=== PATIENT | male | born 1940 | race African-American/Black ===

== ENCOUNTER 2019-01-09 11:51 | Inpatient (IN) ==
[2019-01-09 13:13] LABS: URINE SOURCE CLEAN CATCH
[2019-01-09 13:15] LABS: BASO# 0.02 X1000 (0.0-0.2); BASO% 0.2 % (0.0-0.8); EOS# 0.02 X1000 (0.0-0.7); EOS% 0.2 % (0.0-10.0); HEMATOCRIT 46.7 % (42.0-52.0); HEMOGLOBIN 15.9 g/dL (14.0-18.0); LYMPH# 1.91 X1000 (1.2-3.4); LYMPH% 16.9 % (20.5-51.1); MCH 30.5 PG (27-31); MCV 89.6 FL (81-99); MONO% 7.1 % (1.7-9.3); NEUT# 8.57 X1000 (1.4-6.5); NEUT% 75.6 % (42.2-75.2); PLT 201 X1000 (130-400); RBC 5.21 XMIL (4.7-6.1); RDW 13.2 % (11.5-14.5); WBC 11.32 X1000 (4.8-10.8)
[2019-01-09 13:15] LABS: BILIRUBIN URINE NEGATIVE (NEGATIVE); BLOOD URINE TRACE (NEGATIVE); COLOR YELLOW; GLUCOSE URINE NEGATIVE (NEGATIVE); KETONE URINE NEGATIVE (NEGATIVE); LEUKOCYTES URINE TRACE (NEGATIVE); NITRITE URINE NEGATIVE (NEGATIVE); PROTEIN URINE 50 mg/dL (NEGATIVE); SP GRAVITY URINE 1.027; TURBIDITY URINE CLEAR (CLEAR); UR EPITHELIAL CELLS <10 /HPF (<10); URINE BACTERIA NEGATIVE /HPF; URINE RBC <10 /HPF (<10); URINE WBC <10 /HPF (<10); UROBILINOGEN URINE NORMAL (NORMAL)
[2019-01-09 13:30] LABS: ALBUMIN 4.2 g/dL (3.5-5.0); CALCIUM 10.2 mg/dL (8.8-10.2); CREATININE 1.5 mg/dL (0.7-1.2); TOTAL BILIRUBIN 0.63 mg/dL (0.20-1.00); TOTAL PROTEIN 8.3 g/dL (6.3-8.3)
--- NOTE | 2019-01-09 15:53 | Diag Imaging Result Doc PS360 ---
US GB < RUQ (LIMITED) - 01/09/2019 INDICATION: epigastric pain TECHNIQUE: COMPARISON: None FINDINGS: The exam is challenging due to excessive bowel gas. The liver and gallbladder are normal. Common bile duct measures 8 mm. Pancreas and right kidney are obscured. Aorta, IVC, and main portal vein are obscured. IMPRESSION: Negative exam. Electronically signed by Erasmo Keenan 01/09/2019 3:51 PM
--- NOTE | 2019-01-09 17:56 | PROVIDER DOCUMENTATION ---
HPI-Abdominal Pain/GI Problem - General Chief Complaint: N/V/D Stated Complaint: VOMITING Time Seen by Provider: 01/09/19 12:28 Source: patient Allergies/Adverse Reactions: Patient Allergies Allergy/AdvReac Type Severity Reaction Status Date / Time No Known Allergies Allergy Verified 09/11/14 07:21 Home Medications: Home Medication List Medication Instructions Recorded Confirmed Last Taken Type Ondansetron HCl [Zofran] 4 mg PO Q8H PRN #15 tablet 09/11/14 Unknown Rx - History of Present Illness-ABD Nature of Presenting Problems: 78 YO M pmh for HTN presents with c/o abdominal bloating and hiccups x 3 days. Associated n/v/diarrhea without blood. Denies fever, chills, new foods or sick contacts. Hx of remote appendectomy. Poor historian. Unsure of medication he takes for HTN. PCP is Dr. Moran. Abdominal Pain Onset Location: reports: generalized abdomen Pain Radiation: reports: no radiation Quality of Pain: reports: fullness, pressure Severity in ED: reports: mild Onset/Duration: reports: 3 days ago Timing: reports: still present Activities at Onset: reports: none Exposure to sick contacts?: No Modifying Factors: improves with: nothing Associated Symptoms: reports: diarrhea, nausea, vomiting. denies: fever/chills, shortness of breath, trouble walking Last BM: this afternoon Dark Stools Present?: reports: none noticed Similar Symptoms Previously?: No Review of Systems - Adult - REVIEW OF SYSTEMS - ADULT Constitutional: denies: chills, fever Eyes: reports: no symptoms reported Ears, Nose, Mouth & Throat: reports: no symptoms reported Cardiovascular: denies: chest pain, edema Respiratory: reports: no symptoms reported Past History - Adult - PAST MEDICAL HISTORY-ADULT Review of Records: reports: Old Records Reviewed, Social history reviewed & non- contributory. Major Childhood Illnesses: reports: denies history Cardiovascular: reports: HTN Respiratory: reports: denies history Gastrointestinal: reports: denies history Genitourinary: reports: denies history Musculoskeletal: reports: denies history Neurological: reports: denies history Psychiatric: reports: denies history Endocrine/Immune: reports: denies history Other Conditions: reports: denies history - PRIOR SURGERIES/PROCEDURES Surgical/Procedure History: reports: none - FAMILY HISTORY Family History: reviewed, not pertinent Physical Exam-General - CONSTITUTIONAL General Appearance: alert, no apparent distress - EYES Eyes: pink conjunctivae - HEAD, EARS, NOSE, MOUTH & THROAT HENMT: normocephalic/atraumatic, moist mucous membranes - NECK Neck: full range of motion, supple - RESPIRATORY Respiratory: lungs clear, normal breath sounds, no pleuratic chest pain - CARDIOVASCULAR Cardiovascular: regular rate, rhythm, no edema - GASTROINTESTINAL (ABDOMEN) Abdominal Exam: distended. negative: tenderness, mass, Moreno's sign, Rovsing's sign - MUSCULOSKELETAL Back Exam: normal inspection, no CVA tenderness Extremity: normal range of motion, normal gait - SKIN Integumentary: normal color, normal turgor, warm/dry - NEUROLOGIC Neurologic: grossly normal - PSYCHIATRIC Psych/Mental Status: normal mood/affect Progress - PLAN OF CARE/RESULTS Progress/Plan/Lab Results: Vital Signs - 8 hr 01/09/19 12:00 01/09/19 16:28 01/09/19 16:29 Temperature 98.5 F Pulse Rate 76 Respiratory Rate 19 Blood Pressure 194/88 214/111 O2 Sat by Pulse Oximetry 98 94 L 94 L 01/09/19 16:32 01/09/19 17:00 01/09/19 17:02 Temperature Pulse Rate Respiratory Rate Blood Pressure 195/102 178/96 O2 Sat by Pulse Oximetry 94 L 95 96 Laboratory Results - last 24 hr 01/09/19 01/09/19 01/09/19 12:50 13:00 13:00 WBC 11.32 H RBC 5.21 Hgb 15.9 Hct 46.7 MCV 89.6 MCH 30.5 MCHC 34.0 RDW Std Deviation 13.2 Plt Count 201 MPV 10.0 Neut % (Auto) 75.6 H Lymph % (Auto) 16.9 L [place] % (Auto) 7.1 Eos % (Auto) 0.2 Baso % (Auto) 0.2 Neut # (Auto) 8.57 H Lymph # (Auto) 1.91 [place] # (Auto) 0.80 H Eos # (Auto) 0.02 Baso # (Auto) 0.02 Sodium 135 L Potassium 4.0 Chloride 92 L Carbon Dioxide 31 Anion Gap 12 BUN 12 Creatinine 1.5 H Estimated GFR/1.73 m2 54 BUN/Creatinine Ratio 8 Glucose 144 H Calculated Osmolality 272 Calcium 10.2 Total Bilirubin 0.63 AST 19 ALT 14 Alkaline Phosphatase 83 Total Protein 8.3 Albumin 4.2 Globulin 4.1 Albumin/Globulin Ratio 1.0 Amylase 105 Lipase 20 Urine Source CLEAN CATCH Urine Color YELLOW Urine Turbidity CLEAR Urine pH 6.0 Ur Specific [place] 1.027 Urine Protein 50 A Ur Glucose (Stick) NEGATIVE Ur Ketones (Stick) NEGATIVE Urine Blood TRACE A Urine Nitrite NEGATIVE Urine Bilirubin NEGATIVE Urobilinogen Dipstick NORMAL Urine Leukocytes TRACE A Urine WBC (Auto) <10 Urine RBC (Auto) <10 U Epithel Cells (Auto) <10 Urine Bacteria (Auto) NEGATIVE Orders Category Date Time Status CT ABDOMEN/PELVIS W/O CONTRAST [CT] Stat Exams 01/09/19 17:52 Ordered US GB < RUQ (LIMITED) [US] Stat Exams 01/09/19 14:44 Completed AMYLASE [CHEM] Stat Lab 01/09/19 13:00 Completed CBC WITH DIFF [HEME] Stat Lab 01/09/19 13:00 Completed COMPREHENSIVE METABOLIC PANEL [CHEM] Stat Lab 01/09/19 13:00 Completed LIPASE [CHEM] Stat Lab 01/09/19 13:00 Completed URINALYSIS W/POSS RFLX CULT [URINALYSIS] Stat Lab 01/09/19 12:50 Completed URINE CULTURE [RM] Routine Lab 01/09/19 13:48 Received Result Diagrams: 01/09/19 13:00 01/09/19 13:00 - REASSESSMENT Reassessment #1 Time Reassessed: 20:40 Status: unchanged (pt currently denying any pain) - ULTRASOUND (By Radiology) 1 US Study: Abdomen, Gallbladder Impression: See EMR Report (INDICATION: epigastric pain TECHNIQUE: COMPARISON: None FINDINGS: The exam is challenging due to excessive bowel gas. The liver and gallbladder are normal. Common bile duct measures 8 mm. Pancreas and right kidney are obscured. Aorta, IVC, and main portal vein are obscured. IMPRESSION: Negative exam. Electronically signed by Erasmo Keenan 01/09/2019 3 :51 PM) - CONSULTS/PCP/HOSPITALIST Notification #1 *Consult/PCP/Hospitalist*: Dr. Ortega Time Discussed: 19:31 Consult Disposition: Will see in ED #2 Consult: Dr. Cortes Poole Discussed: 20:36 Consult Disposition: Will see in ED Departure - Departure Date of Disposition Decision: 01/09/19 Time of Disposition Decision: 19:19 DIAGNOSIS: Small bowel obstruction, Hypertension Disposition: ADMITTED INPATIENT 09 Certified Medical Emergency: Emergent Condition: Stable Referrals and Follow-Ups: Lorene Moran MD [Primary Care Provider] - - Critical Care Note This patient required my direct & personal management of CC.: No Attestation - Physician/ FRIDA Attestation The physician spent face to face time with patient:: Yes Advanced Practice Provider documentation review:: Supervising physician onsite and consulted in the evaluation and care of this patient. The physician did have a face to face encounter with the patient.
[2019-01-09] MEDS ORDERED: NS 1,000 ML IV ONE (18:06)
[2019-01-09] MEDS ORDERED: ZOFRAN IV ONE (18:07)
--- NOTE | 2019-01-09 19:00 | Diag Imaging Result Doc PS360 ---
CT ABDOMEN/PELVIS W/O CONTRAST - 01/09/2019 INDICATION: n/v/d COMPARISON: None FINDINGS: There is a trace right pleural effusion. No infiltrates in the lung bases. Heart size is top normal. There is significant distention of the stomach and numerous proximal small bowel loops. Distal small bowel and the colon is severely collapsed. The transition point appears to be in the right upper quadrant near the anterior peritoneum. There is a large nonobstructing left renal stone. This measures about 1 cm. No hydronephrosis or hydroureter. Urinary bladder, prostate, and rectum are normal. Small fat-containing right inguinal hernia. There are moderate degenerative changes of the spine. No acute or suspicious bony lesion. IMPRESSION: 1. Moderately high-grade distal mechanical small bowel obstruction. Transition point is probably in the right upper quadrant. 2. Nonobstructing left renal stone. 3. Trace right pleural effusion. This exam was performed using automated exposure control, adjustment of mA or kV according to patient size, and/or use of iterative reconstruction technique Electronically signed by Erasmo Keenan 01/09/2019 6:57 PM
[2019-01-09] MEDS: NS 1,000 ML IV SCH (20:25)
[2019-01-09] MEDS ORDERED: APRESOLINE IV PRN (21:44)
[2019-01-09] MEDS ORDERED: MORPHINE IV PRN (21:44)
--- NOTE | 2019-01-09 21:58 | GENERAL SURGERY CONSULTATION ---
DATE: 01/09/2019 CHIEF COMPLAINT: Hiccups and abdominal distention. HISTORY OF PRESENT ILLNESS: This is an 78-year-old male who presented to the emergency room with several days of progressive hiccups, abdominal distention, nausea and vomiting. He says his bowel movements have not been normal for a while. He is having bowel movements every day, but they are small and loose. No exacerbating or relieving factors. No fever or chills. No chest pain or shortness of breath or other systemic complaints. PAST MEDICAL HISTORY: Hypertension, hypercholesterolemia, gout. HOME MEDICATIONS: He is unable to remember what they are, but he takes medicine for blood pressure, gout and cholesterol. PAST SURGICAL HISTORY: Open appendectomy and left inguinal hernia repair. ALLERGIES: No known drug allergies. FAMILY HISTORY: Reviewed and noncontributory. SOCIAL HISTORY: Negative for tobacco, alcohol or illicit drug use. REVIEW OF SYSTEMS: Ten systems reviewed and negative except as noted above. PHYSICAL EXAMINATION: Vital Signs: Temperature 98 degrees, blood pressure 178-214 systolic over 96- 88 diastolic, O2 saturation is 100%. General: A well-developed male in no distress who looks his stated age. HEENT: Normocephalic, atraumatic. Extraocular muscles intact. Pupils are equal, round and reactive to light. Sclerae are anicteric. Moist mucous membranes. Neck: Supple. No thyromegaly. Cardiovascular: Regular rate and rhythm. Respiratory: Bilateral breath sounds. No work of breathing. Gastrointestinal: Soft, distended, hypoactive bowel sounds, nontender. No organomegaly or mass. No hernias appreciated. Well-healed right lower quadrant incision. Extremities: No clubbing, cyanosis or edema. Skin: Warm and dry. No rash. Musculoskeletal: Moves all extremities equally and well. LABORATORY DATA: White blood cell count 11,000, hemoglobin 15.9, hematocrit 46.7. Electrolytes reviewed notable for creatinine of 1.5. Urinalysis reviewed and unremarkable. IMAGING: CT of the abdomen and pelvis shows moderate high-grade mechanical small bowel obstruction, a nonobstructing left renal stone, and a trace right pleural effusion. ASSESSMENT AND PLAN: An 78-year-old male with a small bowel obstruction of unclear etiology, possible adhesions from previous surgery. He does not have an acute abdomen. He also has hypertensive urgency. He will be admitted to the hospitalist and I will observe closely. We will place an NG tube to low wall suction, hydrate him, and reexamine him in the morning. If he is not significantly worsened then I will plan a small bowel follow-through in the next 48 hours cc: Bernardo Ortega MD
[2019-01-09 21:59] LABS: CALCIUM 10.2 mg/dL (8.8-10.2); CREATININE 1.4 mg/dL (0.7-1.2); POTASSIUM 4.1 mmol/L (3.5-5.1)
--- NOTE | 2019-01-09 22:24 | HISTORY AND PHYSICAL ---
PRIMARY CARE PHYSICIAN: Dr. Moran. CHIEF COMPLAINT: Abdominal pain x3 days. HISTORY OF PRESENTING ILLNESS: This is an 78-year-old elderly male with a history of hypertension, hyperlipidemia and gout who had presented to the emergency department with 3 days history of having worsening abdominal pain. The patient states that he was having nausea and vomiting and was not feeling well. The patient presented to the emergency department. He had a CAT scan done which did show a small bowel obstruction. His case was discussed with General Surgery who recommended admission for further management. At the time of my examination the patient denied any headache, fever, chills, chest pain, shortness of breath, hemoptysis or any weight changes but complained of abdominal pain. PAST MEDICAL HISTORY: Includes hypertension, hyperlipidemia, gout. PAST SURGICAL HISTORY: Appendectomy, hernia surgery. ALLERGIES: No known drug allergies. CURRENT MEDICATIONS: Allopurinol 100 mg p.o. daily, losartan 100 mg p.o. daily, pravastatin 20 mg p.o. at bedtime, verapamil 300 mg p.o. daily. SOCIAL HISTORY: No history of smoking, alcohol or illicit drug use. FAMILY HISTORY: Positive for coronary disease in father. REVIEW OF SYSTEMS: Fourteen point review of systems is as in HPI, other systems negative. PHYSICAL EXAMINATION: GENERAL: A cooperative friendly male. He is resting more comfortably now. VITAL SIGNS: Temperature 98.5 degrees, pulse 76, respiration 19, blood pressure 194/88. HEENT: Atraumatic, normocephalic. Extraocular movements intact. PERRLA. NECK: No masses. CHEST: Clear to auscultation. CARDIOVASCULAR: Regular rate and rhythm. ABDOMEN: Soft. Hypoactive bowel sounds. EXTREMITIES: No edema. NEUROLOGIC: He is awake, alert and oriented x3. : No bladder distention. SKIN: Warm. LABORATORIES AND STUDIES: WBC is 11.32, hemoglobin 15.9, hematocrit 46.7, platelets 201,000. Sodium 135, potassium 4.1, chloride 93, CO2 is 20, BUN is 13, creatinine is 1.4, glucose is 137. CT of the abdomen and pelvis shows moderately high-grade distal mechanical small bowel obstruction. ASSESSMENT: This is an 78-year-old male with a history of hypertension, hyperlipidemia and gout who had presented to the emergency department with 3 days history of worsening abdominal pain, nausea and vomiting. He was evaluated in the emergency department and he had imaging done which did confirm a small bowel obstruction. Subsequently he will require admission for further management. 1. Small bowel obstruction. 2. Hypertension. 3. Hyperlipidemia. PLAN: 1. We will admit the patient to a medical floor with telemetry. 2. We will keep the patient NPO, continue with IV fluids, antiemetics, pain control. 3. We will consult General Surgery. 4. We will monitor blood pressure closely. 5. We will hold home medications for now. 6. We will put the patient on DVT prophylaxis with SCDs. 7. We will continue to follow, reassess and make further recommendation based on the patient's clinical course. cc: Robert Kolb MD
[2019-01-09 23:52] LABS: HEMOGLOBIN A1C 6.1 % (4.8-6.0)
[2019-01-10] MEDS: LOVENOX SUBQ SCH (01:21)
[2019-01-10] MEDS ORDERED: THORAZINE 25 MG in NS 25 ML IV ONE (05:40)
[2019-01-10 07:24] LABS: CALCIUM 8.8 mg/dL (8.8-10.2); CREATININE 1.4 mg/dL (0.7-1.2); MAGNESIUM 1.5 mg/dL (1.5-2.7); POTASSIUM 3.9 mmol/L (3.5-5.1)
--- NOTE | 2019-01-10 08:00 | Diag Imaging Result Doc PS360 ---
EXAM: ABDOMEN FLAT/UPRIGHT 01/10/2019 HISTORY: sbo TECHNIQUE: Flat and upright abdomen COMMENT: The bowel gas pattern is unremarkable. There is an NG tube with its tip in the stomach. There is no evidence organomegaly or mass. IMPRESSION: Nonspecific abdomen. Electronically signed by Barrett Gandhi 01/10/2019 7:58 AM
[2019-01-10] MEDS: NS 1,000 ML IV SCH ×2 (11:24→12:37)
--- NOTE | 2019-01-10 11:56 | GENERAL SURGERY PROGRESS NOTE ---
DATE: 01/10/2019 SUBJECTIVE: The patient is feeling better with less nausea and hiccups. He also reports some flatus overnight. OBJECTIVE: He is afebrile. Vital signs are stable.General: He is awake, alert, and oriented x3. No acute distress. Gastrointestinal: Soft. Less distended. Nontender. His NG tube output is over 1000 mL. LABORATORY: Electrolytes reviewed and unremarkable today. IMAGING: His abdominal x-ray this morning shows nonspecific abdomen. The bowel gas pattern is unremarkable. ASSESSMENT/PLAN: An 78-year-old male with partial small-bowel obstruction that appears to be improved. We will get a small bowel follow-through series today, and make further recommendations after this. cc: Bernardo Ortega MD
--- NOTE | 2019-01-10 15:12 | Diag Imaging Result Doc PS360 ---
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 The exam was performed to five hours and 10 minutes. At this time, there are several severely distended loops of small bowel proximally measuring up to 4.5 cm. There was very minimal contrast passage into the more distal, collapsed small bowel. By this time, contrast did not reach the colon. IMPRESSION: High-grade partial distal small bowel mechanical obstruction. Electronically signed by Erasmo Keenan 01/10/2019 3:10 PM
--- NOTE | 2019-01-10 16:03 | PROGRESS NOTE ---
DATE: 01/10/2019 SUBJECTIVE: This morning Mr. Key refers to be doing slightly better. The son and the daughter were at the bedside at the time of the encounter. Mr. Key continues to have hiccups, but no abdominal pain. There is a lot of draining coming through the NG tube. OBJECTIVE: Vital signs: Blood pressure is 124/72, pulse of 95, respirations 16, temperature 99.2 degrees. General: Mr. Key is an 78-year-old gentleman. He was in bed, no distress. HEENT: Mucosa is pink and moist. Anicteric. Acyanotic. Neck: Supple. Chest: Good air entry bilateral. There were no crepitations and no rhonchi. Cardiovascular: Regular rate and rhythm. Abdomen: Soft, distended, but nontender. Bowel sounds were present but slightly hyperactive. There is an old scar on the right lower abdomen. Extremities: No pedal edema. 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 LABORATORY DATA: Has been reviewed. The patient's creatinine is 1.4. TSH is 7.27. MEDICATIONS: Have all been reviewed. ASSESSMENT: 1. Partial small bowel obstruction. We will continue with the gastric decompression, n.p.o., adequate hydration, and we will continue replacing any abnormal electrolytes. 2. History of hypertension, stable. 3. Dyslipidemia. 4. Chronic kidney disease stage 3A. Noted. 5. Abnormal thyroid stimulating hormone. We are going to repeat this tomorrow morning with a free T4. cc: Arron Workman MD
[2019-01-10] MEDS: THORAZINE 25 MG in NS 25 ML IV PRN (18:12)
[2019-01-11] MEDS: LOVENOX SUBQ SCH ×2 (00:47)
[2019-01-11] MEDS: THORAZINE 25 MG in NS 25 ML IV PRN ×4 (00:47→21:19)
[2019-01-11] MEDS: NS 1,000 ML IV SCH ×3 (00:49→18:29)
[2019-01-11 07:45] LABS: FREE T4 1.04 ng/dL (0.93-1.70); TSH 3.77 uIUmL (0.27-4.20)
--- NOTE | 2019-01-11 09:40 | Diag Imaging Result Doc PS360 ---
FLAT/UPRIGHT ABD/1 VIEW CHEST - 01/11/2019 INDICATION: sbo TECHNIQUE: COMPARISON: Small bowel exam 01/10/2019 FINDINGS: There has been moderate passage of the ingested contrast throughout the colon. However there is still residual hang-up of contrast in the proximally dilated, obstructed small bowel loops. IMPRESSION: Redemonstration of the high-grade partial small bowel obstruction. Some passage of contrast into the colon. Electronically signed by Erasmo Keenan 01/11/2019 9:38 AM
[2019-01-11] MEDS: MILK OF MAGNESIA NG SCH ×2 (13:31→21:19)
[2019-01-11] MEDS: MINERAL OIL NG SCH ×2 (13:49→21:19)
--- NOTE | 2019-01-11 14:40 | EKG Report ---
Test Performed on : 01/11/2019 2:33:42 PM Test Reason : Afib Blood Pressure : / mmHG Vent. Rate : 107 BPM Atrial Rate : 107 BPM P-R Int : 156 ms QRS Dur : 100 ms QT Int : 362 ms P-R-T Axes : 036 -47 042 degrees QTc Int : 483 ms Sinus tachycardia. with occasional premature ventricular complexes. Left anterior fascicular block Abnormal ECG No previous ECGs available Confirmed by Capo GIPSON, Torrey Aguilar ([id number]) on 01/13/2019 6:58:17 AM
--- NOTE | 2019-01-11 15:05 | PROGRESS NOTE ---
DATE: 01/11/2019 SUBJECTIVE: This morning, Mr. Key refers to be feeling the same. A lot of hiccups. Early on, the nurses told me that he was having a heart rate of about 110 to 130. It looks sinus. OBJECTIVE: Current Vital Signs: Blood pressure is 156/75, pulse is 123, respirations 20, temperature 99.6 degrees. General: Mr. Key is an 78-year-old gentleman. He is in bed. No distress. HEENT: Mucosa is pink and moist. Anicteric. Acyanotic. Neck: Supple. Chest: Good air entry bilaterally. No crepitations. No rhonchi. Cardiovascular: Regular rate and rhythm. Tachycardic, but no murmurs, no rubs. GI: Abdomen is soft. It is distended. Bowel sounds are present. There is an old surgical scar on the right lower abdomen. Extremities: No pedal edema. 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 NG tube is in place. The patient has had 1000 output yesterday documented. The current jar seems also to be full. LABORATORY DATA: TSH is 3.77. Free T4 is 0.4. MEDICATIONS: Medications have all been reviewed. IMAGIN. A KUB this morning continues to suggest high-grade partial small-bowel obstruction, some passage of contrast into the colon. 2. An EKG this morning seems to suggest a normal sinus rhythm with PACs and occasional PVCs. ASSESSMENT: 1. Partial small-bowel obstruction. Will continue with nasogastric tube for gastric decompression, nothing by mouth, adequate hydration, and electrolyte replacement. 2. Hypertension, controlled. 3. Dyslipidemia. 4. Chronic kidney disease stage IIIA. 5. Sinus tachycardia with occasional premature ventricular contractions and premature atrial contractions noted. cc: Arron Workman MD
--- NOTE | 2019-01-11 18:36 | GENERAL SURGERY PROGRESS NOTE ---
DATE: 01/11/2019 SUBJECTIVE: The patient denies abdominal pain or nausea. He continues to have hiccups which are his main complaint. He also reports passing some gas. OBJECTIVE: Vital Signs: He is afebrile. Pulse has increased now up to 126. Blood pressure 156/75, O2 saturation 91%. NG tube output 600 mL. General: He is awake, alert, no acute distress. Cardiovascular: Tachycardic and regular. Respiratory: Bilateral breath sounds. No increased work of breathing. Gastrointestinal: Abdomen soft, nontender, mildly distended. No mass appreciated. He does have hypoactive bowel sounds. IMAGING: His abdominal x-ray today does show passage of contrast into the colon. There may continue to be evidence of proximal dilated small bowel loops with distal decompressed small bowel. ASSESSMENT/PLAN: An 78-year-old male with partial small bowel obstruction of unclear etiology versus ileus. We will continue NG tube decompression today. I will put some gentle bowel stimulation through the NG tube and reassess his abdominal exam and x-rays tomorrow. If he is not significantly improved, then I would recommend laparoscopy followed by laparotomy, as indicated. cc: Bernardo Ortega MD
[2019-01-12 07:15] LABS: BASO# 0.02 X1000 (0.0-0.2); BASO% 0.2 % (0.0-0.8); EOS# 0.22 X1000 (0.0-0.7); EOS% 2.7 % (0.0-10.0); HEMATOCRIT 41.4 % (42.0-52.0); HEMOGLOBIN 13.5 g/dL (14.0-18.0); LYMPH# 2.31 X1000 (1.2-3.4); LYMPH% 28.2 % (20.5-51.1); MCHC 32.6 g/dL (33-37); MONO# 0.71 X1000 (0.11-0.59); MONO% 8.7 % (1.7-9.3); MPV 10.1 FL (7.4-10.4); NEUT# 4.93 X1000 (1.4-6.5); NEUT% 60.2 % (42.2-75.2); PLT 161 X1000 (130-400); RDW 13.2 % (11.5-14.5); WBC 8.19 X1000 (4.8-10.8)
[2019-01-12 07:28] LABS: AGAP 16; ALBUMIN 3.1 g/dL (3.5-5.0); BUN 13 mg/dL (8-22); CHLORIDE 104 mmol/L (98-107); COSMO 285; CREATININE 1.3 mg/dL (0.7-1.2); ESTIMATED GFR > 60; GLUCOSE 91 mg/dL (70-104); MAGNESIUM 2.2 mg/dL (1.5-2.7); PHOSPHORUS 1.8 mg/dL (2.7-4.5); POTASSIUM 3.4 mmol/L (3.5-5.1); SODIUM 143 mmol/L (136-145); TCO2 23 mmol/L (25-35)
[2019-01-12] MEDS: THORAZINE 25 MG in NS 25 ML IV PRN ×2 (08:14→19:18)
[2019-01-12] MEDS: NS 1,000 ML IV SCH ×2 (08:19→18:03)
[2019-01-12] MEDS ORDERED: POTASSIUM PHOSPHATE 40 MEQ in NS 250 ML IV ONE (08:27)
--- NOTE | 2019-01-12 09:36 | Diag Imaging Result Doc PS360 ---
EXAM: FLAT/UPRIGHT ABD/1 VIEW CHEST HISTORY: sbo TECHNIQUE: Flat and upright with chest, three views COMPARISON: 01/11/2019 FINDINGS: Poor inspiratory effort. No infiltrates. No cardiomegaly. A nasogastric tube overlies the esophagus and upper stomach. There is contrast throughout the colon. The bowel loops are not dilated. No organomegaly. Mild scoliosis with degenerative spine changes. IMPRESSION: No bowel dilatation on the current exam Electronically signed by Dagoberto Sharma 01/12/2019 9:34 AM
[2019-01-12] MEDS: MILK OF MAGNESIA NG SCH ×2 (10:04→21:36)
[2019-01-12] MEDS: MINERAL OIL NG SCH ×2 (10:04→22:59)
--- NOTE | 2019-01-12 19:02 | PROGRESS NOTE ---
DATE: 01/12/2019 SUBJECTIVE: This morning Mr. Key refers to be doing fairly okay. No new complaints today. NG tube has been clamped. OBJECTIVE: Vital signs: Blood pressure 152/82, pulse of 114, respirations 18, and temperature 98.5 degrees. General: Mr. Key is an 78-year-old gentleman. He is in bed in no distress. Mucosa is pink and moist. Anicteric. Acyanotic. Neck: Supple. Chest: Good air entry bilaterally. No crepitations. No rhonchi. Cardiovascular: Regular rate and rhythm. Abdomen: Soft, distended. Bowel sounds are present, slightly hypoactive. There is some old scar on the right lower abdomen. Extremities: No pedal edema. 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 There is no focal neurological deficit. LABORATORY: The patient's I's and O's, the gastric output was about 700 yesterday. This morning is just about 100. Urine output was 650. He is currently negative balance in his I's and O's. CBC is unremarkable/. Chemistry is also reviewed. Potassium is 3.4 and phosphorus is 1.8. Magnesium is normal. A KUB this morning shows no bowel dilation on the current exam. There is contrast throughout the colon. The loops are not dilated. ASSESSMENT: 1. Partial small bowel obstruction. A KUB this morning seems to suggest improvement. The patient still had NG tube. This has been clamped. We are going to follow up with further recommendations from surgery. 2. Hypertension. 3. Dyslipidemia. 4. Stage 3A CKD. 5. Sinus tachycardia with occasional PVCs and PACs. 6. Hypophosphatemia and hypokalemia. We will continue to replace. In general, Mr. Key remains stable. Clinically, he has not shown any changes. KUB however shows some improvement. He denies having any bowel movement, but he did say he has some gas coming out this morning. We are going to continue follow up with further recommendations from surgery. We will also replace all his electrolyte abnormalities. cc: MD DREAD Hopkins
--- NOTE | 2019-01-12 22:06 | GENERAL SURGERY PROGRESS NOTE ---
DATE: 01/12/2019 SUBJECTIVE: The patient was seen this morning. He denied abdominal pain or nausea. He reports continued passage of flatus. He says his hiccups have improved. OBJECTIVE: He is afebrile. Vital signs are stable. He remains with a low-grade tachycardia.General: He is awake and alert, in no acute distress. CV: Tachycardic and regular. Respiratory: Clear bilateral breath sounds. No work of breathing. Gastrointestinal: Soft, nontender, nondistended. His bowel sounds are sluggish. NG tube output yesterday was 700 mL. IMAGING: His abdominal x-ray films were initially at the time of my exam still pending; however, at the time of this dictation, they have come back and show no dilation of the small bowel and contrast throughout the colon. LABORATORY: Reviewed and unremarkable. ASSESSMENT/PLAN: An 78-year-old male with partial small bowel obstruction. Radiographically, he seems improved. His nurse tells me that this afternoon he has only had about 200-250 mL of nasogastric drainage since 7 a.m., a period of 8 hours. We will clamp the nasogastric tube tonight and check a residual after 6 hours. If it is low or less than 150 mL, we will remove the nasogastric tube and start a clear liquid diet. If he fails the nasogastric tube trial, then I will reassess in the morning and he may come to diagnostic laparoscopy. cc: Bernardo Ortega MD
[2019-01-12] MEDS: LOVENOX SUBQ SCH (22:59)
[2019-01-13] MEDS: NS 1,000 ML IV SCH ×2 (01:10→19:46)
[2019-01-13 07:50] LABS: AGAP 15; ALBUMIN 3.4 g/dL (3.5-5.0); BUN 12 mg/dL (8-22); CALCIUM 7.5 mg/dL (8.8-10.2); CHLORIDE 103 mmol/L (98-107); COSMO 281; CREATININE 1.2 mg/dL (0.7-1.2); ESTIMATED GFR > 60; GLUCOSE 123 mg/dL (70-104); MAGNESIUM 2.3 mg/dL (1.5-2.7); PHOSPHORUS 1.6 mg/dL (2.7-4.5); POTASSIUM 3.9 mmol/L (3.5-5.1); SODIUM 140 mmol/L (136-145); TCO2 22 mmol/L (25-35)
[2019-01-13] MEDS ORDERED: POTASSIUM PHOSPHATE 40 MEQ in NS 250 ML IV ONE (08:19)
[2019-01-13] MEDS: MINERAL OIL NG SCH ×2 (11:04→23:30)
[2019-01-13] MEDS: MILK OF MAGNESIA NG SCH ×2 (11:05→23:29)
[2019-01-13] MEDS: THORAZINE 25 MG in NS 25 ML IV PRN ×2 (12:37→19:49)
[2019-01-13] MEDS: ZOFRAN IV PRN ×2 (12:37→19:49)
--- NOTE | 2019-01-13 15:35 | PROGRESS NOTE ---
DATE: 01/13/2019 SUBJECTIVE: This morning, Mr. Key refers to be doing a lot better. NG tube was removed. He had been started on clears, full liquid diet, and he was able to tolerate it. He said he has been passing bowel movements as well, and he denies any abdominal pain. OBJECTIVE: Vital signs: Blood pressure is 168/79, pulse of 110, respiration is 20, temperature is 98.8 degrees. Patient was saturating 98% on room air. General exam: Mr. Key is an 78-year- old gentleman. He was in bed, no distress. He did have about 2 other family members with him. Respiratory System: There was good air entry bilaterally. No crepitations. No rhonchi. Cardiovascular: Regular rate and rhythm. GI/Abdomen: Soft, distended. There was bowel movement. There is some old scar on the right lower abdomen. Extremities: No pedal edema. 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 LABORATORY DATA: The patient's I's and O's were documented, that he had 1 bowel movement early on today. IMAGING STUDIES: No imaging studies for today. ASSESSMENT: 1. Partial small bowel obstruction, which has been managed more conservatively. Nasogastric tube has now been removed, and patient has been able to tolerate a full liquid diet. There is a plan to advance to mechanical soft. 2. Hypertension, controlled. 3. Acute on chronic renal failure, stage IIIA, stable. The patient's creatinine has been down to 1.2 now. 4. Electrolyte abnormality, replaced. 5. Dyslipidemia, stable. PLAN: So, in general, I think Mr. Key is doing well. NG tube is removed. We have replaced his low phosphate. He has been tolerating his clear liquid diet. He has been advanced to mechanical soft. Hopefully, tomorrow if he tolerates the diet, then we can discharge him. cc: Arron Workman MD
--- NOTE | 2019-01-13 16:47 | GENERAL SURGERY PROGRESS NOTE ---
DATE: 01/13/2019 SUBJECTIVE: The patient is feeling better. He denies abdominal pain, nausea, or vomiting. He has had several bowel movements and is passing gas. He is tolerating clear liquids. OBJECTIVE: Vitals: He is afebrile. Vital signs are stable. However, he does remain with a pulse in the low 100s. General: He is awake, alert, no acute distress. GI: Soft, nontender, nondistended. LABORATORY: Electrolytes reviewed and notable for a phosphorus of 1.6. ASSESSMENT AND PLAN: An 78-year-old male with partial small bowel obstruction. It appears to be resolved. We will advance his diet today and observe for his tolerance of this. His tachycardia, however, remains unexplained at this point. cc: Bernardo Ortega MD
[2019-01-14] MEDS ORDERED: PRILOSEC PO SCH (07:00)
[2019-01-14] MEDS: LOVENOX SUBQ SCH (07:09)
[2019-01-14] MEDS: ZOFRAN IV PRN (07:11)
[2019-01-14] MEDS: THORAZINE 25 MG in NS 25 ML IV PRN (09:30)
[2019-01-14] MEDS: MILK OF MAGNESIA NG SCH (09:37)
[2019-01-14] MEDS: MINERAL OIL NG SCH (09:37)
[2019-01-14 10:16] LABS: BASO# 0.02 X1000 (0.0-0.2); BASO% 0.2 % (0.0-0.8); EOS# 0.01 X1000 (0.0-0.7); EOS% 0.1 % (0.0-10.0); HEMATOCRIT 42.9 % (42.0-52.0); HEMOGLOBIN 14.1 g/dL (14.0-18.0); IMM GRAN# 0.04 X1000 (0.0-0.04); IMM GRAN% 0.3 % (0.0-0.5); LYMPH% 11.2 % (20.5-51.1); MCH 29.9 PG (27-31); MCHC 32.9 g/dL (33-37); MCV 91.1 FL (81-99); MONO# 1.15 X1000 (0.11-0.59); MONO% 9.2 % (1.7-9.3); MPV 10.1 FL (7.4-10.4); NEUT# 9.89 X1000 (1.4-6.5); PLT 169 X1000 (130-400); RBC 4.71 XMIL (4.7-6.1); RDW 13.4 % (11.5-14.5); WBC 12.51 X1000 (4.8-10.8)
--- NOTE | 2019-01-14 10:36 | Diag Imaging Result Doc PS360 ---
FLAT/UPRIGHT ABD/1 VIEW CHEST - 01/14/2019 INDICATION: wbc TECHNIQUE: COMPARISON: 01/12/2019 FINDINGS: Stable severely low lung volumes. There is some trace hazy atelectasis or infiltrate in the lung bases similar to prior. Heart size is normal. The nasogastric tube has been removed. There is contrast throughout the colon and rectum. There is a nonobstructive bowel gas pattern. No free air or abnormal calcifications. IMPRESSION: Low lung volumes. Hazy bibasilar infiltrates or atelectasis. No acute process in the abdomen. Electronically signed by Erasmo Keenan 01/14/2019 10:34 AM
--- NOTE | 2019-01-14 10:37 | PROGRESS NOTE ---
DATE: 01/14/2019 SUBJECTIVE: This morning Mr. Key refers to be feeling well. Still has some intermittent hiccups and spitting. He said he has not vomited and he has had multiple bowel movements. OBJECTIVE: Vital Signs: Blood pressure is 170/71, pulse of 123, respirations 22, temperature is 98.7 degrees. The patient was saturating 99%. General exam: Mr. Key is an 78-year-old gentleman. He was in bed. He did not seem to be in any distress. HEENT: Mucosa is pink and moist. Anicteric. Acyanotic. Neck: Supple. Chest: Good air entry bilateral. There were no crepitations, no rhonchi. Cardiovascular: Regular rate and rhythm. No murmurs. GI/Abdomen: Soft, distended, nontender. Bowel sounds are present. There is some old scar on the right lower quadrant. Extremities: No pedal edema. 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 INTAKE/OUTPUT: Urine output was about 250. The patient has documented 2 bowel movements today, and he said he did eat his dinner last night. ASSESSMENT: 1. Partial small bowel obstruction seems to have resolved. Patient is currently tolerating his diet. He has made some bowel movements. 2. Hypertension. We will continue to titrate his medications. 3. Acute kidney injury, improved. 4. Electrolyte abnormality, replaced. 5. Dyslipidemia, stable. 6. Tachycardia with mild elevation in the temperature. This would be concerning for underlying infection. The patient denies any cough at this point. We will however get a chest x-ray and repeat his complete blood count and comprehensive metabolic panel for today, and do a urinalysis to make sure there is not any occult infection. We will also be pending Surgery evaluation today. cc: Arron Workman MD
[2019-01-14 11:43] LABS: AGAP 14; ALBUMIN 3.2 g/dL (3.5-5.0); BUN 10 mg/dL (8-22); CALCIUM 7.7 mg/dL (8.8-10.2); CHLORIDE 102 mmol/L (98-107); COSMO 278; CREATININE 1.2 mg/dL (0.7-1.2); ESTIMATED GFR > 60; GLUCOSE 195 mg/dL (70-104); POTASSIUM 3.8 mmol/L (3.5-5.1); SODIUM 137 mmol/L (136-145); TCO2 21 mmol/L (25-35)
[2019-01-14] MEDS ORDERED: POTASSIUM PHOSPHATE 60 MEQ in NS 250 ML IV ONE (13:21)
--- NOTE | 2019-01-14 14:29 | GENERAL SURGERY PROGRESS NOTE ---
DATE: 01/14/2019 SUBJECTIVE: Does have some hiccups but no vomiting. Low-grade fever 100.6. Heart rate fluctuated, blood pressure 170/71. His abdomen soft. He is having bowel function. He is eating breakfast this morning. ASSESSMENT AND PLAN: This is a 78-year-old gentleman with partial bowel obstruction. This seems to be resolving but possibly incompletely so. We will continue his low volume p.o., repletion of electrolytes and observation. His creatinine is down near his baseline 1.2. cc: Tim Lee MD
[2019-01-14 15:47] VITALS: BP 162/95
--- NOTE | 2019-01-14 18:48 | DISCHARGE SUMMARY ---
ADMISSION DATE: 01/09/2019 DISCHARGE DATE: 01/14/2019 DISPOSITION: Home. FOLLOW-UP: 1. Dr. Lorene Moran. 2. Dr. Ortega. CONSULTATIONS DURING THIS ADMISSION: Surgery was consulted. The patient was seen by Dr. Ortega, followed up by Dr. Lee. INVASIVE PROCEDURES DONE DURING THIS ADMISSION: None. IMAGING STUDIES OF SIGNIFICANCE: 1. Ultrasound of the abdomen was negative. 2. A CT scan of the abdomen and pelvis did show a moderately high-grade distal mechanical small bowel obstruction, and a nonobstructive left renal stone. 3. A KUB showed nonspecific abdomen. A repeat KUB on January 11 showed some passage of the contrast in the colon. A KUB done 2 days ago showed no bowel dilation on the current exam. X- ray this morning shows good lung volumes. No acute process in the abdomen, hazy bibasilar infiltrate or atelectasis. ADMISSION DIAGNOSES: 1. Small bowel obstruction. 2. Hypertension. 3. Dyslipidemia. DIAGNOSES AT THE TIME OF DISCHARGE: 1. Partial small bowel obstruction that seems to have resolved. 2. Hypertension. 3. Acute kidney injury, improved. 4. Electrolyte abnormality including hypophosphatemia. 5. Dyslipidemia. 6. Mild tachycardia. DISCHARGE MEDICATIONS: 1. Losartan 100 mg p.o. daily. 2. Pravastatin 20 mg p.o. at bedtime. 3. Verapamil 30 mg p.o. daily. 4. Allopurinol 100 mg p.o. daily. 5. Thorazine 25 mg p.o. 3 times per day. 6. Pantoprazole 40 mg p.o. daily. 7. Zofran 4 mg p.o. every 8 hours p.r.n. PRESENTING COMPLAINT: Abdominal pain. HISTORY OF PRESENT COMPLAINT: Mr. Key is an 78-year-old gentleman who has history of hypertension, dyslipidemia and gout. Presented to the emergency department because of worsening abdominal pain. Upon presentation he was evaluated, including a CT scan that was done which showed that the patient had a high-grade small bowel obstruction. He was admitted for further medical care. HOSPITAL COURSE: Mr. Key was admitted to the surgical floor. An NG tube was placed and was left there for about 2 days, and Surgery was consulted. During the hospital course he was adequately hydrated. Pain was managed. His other comorbidities were all managed. His NG tube was removed about 3 days later, and he was started on clear liquid, which was advanced to mechanical soft. He seems to have tolerated that well. He also did have multiple bowel movements during the hospital course. As a matter of fact, today it is documented that he had 2, and he also had 1 yesterday. A KUB this morning shows no acute process in the abdomen. A chest x-ray was also unremarkable except for some atelectasis. This was mainly done because patient was having borderline tachycardia and also add a spike in the temperature. However, his laboratory data have been fairly unremarkable except for mild elevation in his white count. The patient's phosphorus was also at 1, which has been replaced. This morning I actually when I saw Mr. Key, he was fairly stable. He said he really wants to go home and that he thought that he would do better at home. We did a chest x-ray and a KUB to make sure that he does not have any ongoing infection in the lungs or any ongoing obstruction, which were all negative. He has tolerated his breakfast and his lunch, and he said he is ready to go. We have advised that he continue taking his medications, and that he should follow up with his primary care as well as with Dr. Ortega in about a week's time. Mr. Key has also been advised that if at home, he realizes that is getting sicker with nausea vomiting, then he should come back. All the discharge instructions have been discussed with him. He voiced understanding. There was a family member, a gentleman, at the room with him at the time of the discharge instructions. Time spent for discharge is 36 minutes. cc: Arron Workman MD
== END 2019-01-14 18:50 | disposition home or self-care (01) | DRG 389 ==
LOC: ED 11:51 → 4N 22:30 → SUATTDRO 22:30 → 4N 01-13 14:16
PROVIDERS: ATTEND Internal Medicine